=== PATIENT | male | born 1960 | race Caucasian/White ===

== ENCOUNTER 2021-12-03 01:59 | Emergency (ER) | payer OTHER ==
[~2021-12-03] VITALS: Ht 177.8 cm; Wt 90.7 kg
[2021-12-03] MEDS ORDERED: ONDANSETRON HCL INJ 2MG/ML 2ML 2 MG/ML VIAL IV STA (02:09)
[2021-12-03] MEDS ORDERED: Morphine 4mg Syringe 4 MG/ML INJ IV ONE (02:15)
[2021-12-03] MEDS ORDERED: SODIUM CHLORIDE 0.9% 1000ML 1,000 ML IV ONE (02:15)
[2021-12-03 03:15] LABS: BASOPHILS % 0.2 % (0.0-1.0); EOSINOPHILS # (AUTO) 0.2 (0.0-0.4); EOSINOPHILS % 1.6 % (0.0-6.0); HEMATOCRIT 43.8 % (38.2-49.6); LYMPHOCYTES # (AUTO) 1.4 (1.0-3.2); LYMPHOCYTES % 11.4 % (18.0-39.1); MEAN CORPUSCULAR HEMOGLOBIN 32.5 pg (28-32); MEAN CORPUSCULAR HGB CONC 34.2 g/dL (31-35); MEAN CORPUSCULAR VOLUME 94.8 fL (81-99); MONOCYTES # (AUTO) 1.1 (0.2-0.8); MONOCYTES % 8.7 % (4.4-11.3); NEUTROPHILS # (AUTO) 9.6 (2.1-6.9); NEUTROPHILS % 77.7 % (38.7-80.0); PLATELET COUNT 242 x10e3/uL (140-360); RED BLOOD COUNT 4.62 x10e6/uL (4.3-5.7)
[2021-12-03 03:32] LABS: AMYLASE 85 U/L (25-125); LIPASE 25 U/L (8-78)
[2021-12-03 03:35] LABS: ALANINE AMINOTRANSFERASE 15 IU/L (0-55); ALBUMIN 3.2 g/dL (3.5-5.0); ALBUMIN/GLOBULIN RATIO 0.7 (0.8-2.0); ALKALINE PHOSPHATASE 105 IU/L (40-150); ANION GAP 13.5 mmol/L (8-16); BLOOD UREA NITROGEN 15 mg/dL (7-26); BUN/CREATININE RATIO 12 (6-25); CARBON DIOXIDE 24 mmol/L (22-29); CHLORIDE 105 mmol/L (98-107); CREATINE KINASE 90 IU/L (30-200); CREATININE, SERUM 1.22 mg/dL (0.72-1.25); EST GLOMERULAR FILTRATION RATE 60 ML/MIN (60-); GLUCOSE 161 mg/dL (74-118); POTASSIUM 3.5 mmol/L (3.5-5.1); SODIUM 139 mmol/L (136-145)
[2021-12-03] MEDS ORDERED: IOPAMIDOL 370 MG/ML 100 ML INFUS..BTL INJ ONE (04:10)
[2021-12-03 04:24] LABS: COLOR,URINE YELLOW (YELLOW)
[2021-12-03 04:25] LABS: CLARITY,URINE CLEAR (CLEAR); KETONES,URINE NEGATIVE (NEGATIVE); LEUKOCYTE ESTERASE ,URINE NEGATIVE (NEGATIVE); NITRITE,URINE NEGATIVE (NEGATIVE); PROTEIN,URINE DIPSTICK 1+ (NEGATIVE); URINE UROBILINOGEN 0.2 mg/dL (0.2 - 1)
[2021-12-03 04:29] LABS: BACTERIA,URINE FEW /HPF; EPITHELIAL CELLS,URINE RARE /LPF; WBC,URINE (MAN) 0-5 /HPF (0-5)
[2021-12-03 05:36] VITALS: BP 154/80
== END 2021-12-03 05:40 | disposition home or self-care (01) ==
LOC: ER 02:01
DX: R10.9 Unspecified abdominal pain (principal); K80.80 Other cholelithiasis without obstruction; I10 Essential (primary) hypertension; K21.9 Gastro-esophageal reflux disease without esophagitis
CPT/HCPCS: 36415; 74177; 80053; 81001; 82150; 82550; 82553; 83690; 84484; 85025; 93005; 99284; C9113; J2270; J2405; J7030; Q9967